=== PATIENT | male | born 1990 | race Caucasian/White ===

== ENCOUNTER 2023-12-28 06:36 | Emergency (ER) | payer MEDICAID ==
[~2023-12-28] VITALS: Ht 170.2 cm; Wt 82.0 kg
[~2023-12-28 06:36] MED LIST: LEVO-65 MT
[2023-12-28 06:53] VITALS: O2SAT 97
[2023-12-28 07:56] LABS: BASOPHILS % 1.1 % (0.0-2.0); HEMATOCRIT. 45.9 % (42.0-52.0); HEMOGLOBIN. 15.6 g/dL (14.0-18.0); LYMPHOCYTES % 16.4 % (20.0-50.0); MEAN CORPUSCULAR HEMOGLOBIN 31.7 pg (28.0-32.0); MEAN CORPUSCULAR HGB CONC 33.9 g/dL (31.0-37.0); MEAN CORPUSCULAR VOLUME 93.5 fL (80.0-94.0); MEAN PLATELET VOLUME 8.4 fl (7.4-10.4); NEUTROPHILS % 67.5 % (40.0-76.0); PLATELET 240 x1000/uL (130-400); RED BLOOD CELL COUNT 4.91 mill/uL (4.7-6.1); RED CELL DISTRIBUTION WIDTH 12.9 % (11.6-14.6); WHITE BLOOD COUNT 6.3 x1000/uL (4.5-11.0)
[2023-12-28 08:01] LABS: CHLORIDE 105 mEq/L (98-107); POTASSIUM 4.4 mEq/L (3.5-5.1); SODIUM 138 mEq/L (136-145)
[2023-12-28 08:02] LABS: CALCIUM 9.7 mg/dL (8.7-10.4); CARBON DIOXIDE 25 mEq/L (21-32)
[2023-12-28 08:07] LABS: CREATININE 0.7 mg/dL (0.6-1.3); GLUCOSE 119 mg/dL (70-105); UREA NITROGEN BLOOD 11 mg/dL (9-23)
[2023-12-28 08:50] VITALS: BP 138/78; PULSE 81; RESP 18; TEMP 98.2
== END 2023-12-28 08:50 | disposition home or self-care (01) ==
LOC: ER 06:36
DX: R23.4 Changes in skin texture (principal); Z88.1 Allergy status to other antibiotic agents; Z98.890 Other specified postprocedural states
CPT/HCPCS: 36415; 80048; 85025; 99283

== ENCOUNTER 2024-02-08 09:34 | Emergency (ER) | payer MEDICAID ==
[~2024-02-08] VITALS: Ht 170.2 cm; Wt 82.0 kg
[2024-02-08 09:45] VITALS: O2SAT 98
[2024-02-08 10:08] LABS: CHLORIDE 96 mEq/L (98-107); POTASSIUM 3.7 mEq/L (3.5-5.1); SODIUM 138 mEq/L (136-145)
[2024-02-08 10:10] LABS: BASOPHILS % 0.8 % (0.0-2.0); CARBON DIOXIDE 23 mEq/L (21-32); EOSINOPHILS % 0.4 % (0.0-5.0); LYMPHOCYTES % 22.9 % (20.0-50.0); MEAN CORPUSCULAR HGB CONC 34.8 g/dL (31.0-37.0); MEAN CORPUSCULAR VOLUME 91.8 fL (80.0-94.0); MEAN PLATELET VOLUME 8.9 fl (7.4-10.4); NEUTROPHILS % 67.9 % (40.0-76.0); PLATELET 369 x1000/uL (130-400); RED BLOOD CELL COUNT 5.33 mill/uL (4.7-6.1); RED CELL DISTRIBUTION WIDTH 13.6 % (11.6-14.6); WHITE BLOOD COUNT 7.9 x1000/uL (4.5-11.0)
[2024-02-08 10:15] LABS: GLUCOSE 133 mg/dL (70-105)
[2024-02-08 10:16] LABS: ETHANOL BLOOD 202 mg/dL (<10)
[2024-02-08 10:17] LABS: ALANINE AMINOTRANSFERASE 224 IU/L (10-49); ALBUMIN 5.5 g/dL (3.2-4.8); ASPARTATE AMINOTRANSFERASE 261 IU/L (<34); BILIRUBIN DIRECT 0.7 mg/dL (<=3.0); BILIRUBIN TOTAL 2.1 mg/dL (0.1-1.0); PROTEIN TOTAL 9.1 g/dL (6.0-8.3)
[2024-02-08 10:23] LABS: UREA NITROGEN BLOOD < 5 mg/dL (9-23)
[2024-02-08] MEDS: DICYCLOMINE 10 MG/5 ML ORAL SYR PO STA (10:32)
[2024-02-08] MEDS: ONDANSETRON 4MG ODT PO STA (11:20)
[2024-02-08] MEDS: FAMOTIDINE 20MG TABLET PO ONE (11:23)
[2024-02-08] MEDS: CHLORDIAZEPOXIDE 25MG CAPSULE PO ONE (11:42)
[2024-02-08 12:29] LABS: CLARITY URINE CLEAR (CLEAR); COLOR URINE DARK YELLOW (YELLOW); GLUCOSE URINE NEGATIVE (NEGATIVE); KETONES URINE 3+ (NEGATIVE); LEUKOCYTE ESTERASE URINE TRACE (NEGATIVE); NITRITE URINE NEGATIVE (NEGATIVE); OCCULT BLOOD URINE NEGATIVE (NEGATIVE); PROTEIN URINE 2+ (NEGATIVE); SPECIFIC GRAVITY URINE 1.018 (1.005-1.030)
[2024-02-08] MEDS ORDERED: GABA-532 MT (12:55)
[2024-02-08 13:02] LABS: BACTERIA URINE FEW; RBC URINE NONE SEEN /hpf (0-2); SQUAMOUS EPITHELIAL CELL URINE NONE SEEN /lpf (RARE/1+); WBC URINE 0-2 /hpf (0-2); YEAST URINE NONE SEEN
[2024-02-08 13:30] VITALS: BP 130/93; PULSE 102; RESP 18; TEMP 36.72516; O2SAT 97
[2024-02-08] MEDS: KETOROLAC 30MG/ML VIAL IM ONE (13:37)
== END 2024-02-08 13:30 | disposition home or self-care (01) ==
LOC: ER 09:34
DX: R74.01 Elevation of levels of liver transaminase levels (principal); F10.129 Alcohol abuse with intoxication, unspecified; Z88.1 Allergy status to other antibiotic agents; Y90.7 Blood alcohol level of 200-239 mg/100 ml
CPT/HCPCS: 80076; 80048; 81003; 80320; 83690; 85025; 36415; 96372; 99284; Q0162; J1885; G0480

== ENCOUNTER 2025-03-26 19:38 | Inpatient (IN) | payer MEDICAID ==
[~2025-03-26] VITALS: Ht 160 cm; Wt 81.6 kg
[~2025-03-26 19:38] MED LIST changes: +FOLI-43 PO; +HYDR-4001 MT; -LEVO-65 MT; +PANT40TA51 PO; +THIA100T72 PO; +TRAZ-251 MT
[2025-03-26 19:44] VITALS: O2SAT 96
[2025-03-26] MEDS: SODIUM CHLORIDE 0.9% 1,000 ML IV ONE ×2 (20:21→22:41)
[2025-03-26] MEDS: KETOROLAC 15MG/ML VIAL IV ONE (20:22)
[2025-03-26] MEDS: ONDANSETRON HCL 4MG/2ML INJ IV ONE (20:22)
[2025-03-26 21:13] LABS: BASOPHILS % 1.2 % (0.0-2.0); EOSINOPHILS % 1.5 % (0.0-5.0); HEMATOCRIT. 42.7 % (42.0-52.0); HEMOGLOBIN. 14.5 g/dL (14.0-18.0); LYMPHOCYTES % 23.7 % (20.0-50.0); MEAN PLATELET VOLUME 7.7 fl (7.4-10.4); MONOCYTES % 8.7 % (2.0-8.0); NEUTROPHILS % 64.9 % (40.0-76.0); PLATELET 565 x1000/uL (130-400); RED BLOOD CELL COUNT 4.58 mill/uL (4.7-6.1); RED CELL DISTRIBUTION WIDTH 13.6 % (11.6-14.6)
[2025-03-26 21:30] LABS: CREATININE 0.8 mg/dL (0.6-1.3); TROPONIN I HIGH SENSITIVITY < 4 ng/L (3.0-53)
[2025-03-26 21:31] LABS: UREA NITROGEN BLOOD < 5 mg/dL (9-23)
[2025-03-26 21:32] LABS: ASPARTATE AMINOTRANSFERASE 250 IU/L (<34); BILIRUBIN DIRECT 0.8 mg/dL (<=3.0)
[2025-03-26 21:33] LABS: BILIRUBIN TOTAL 1.6 mg/dL (0.1-1.0); PROTEIN TOTAL 8.4 g/dL (6.0-8.3)
[2025-03-26 21:56] LABS: ETHANOL BLOOD 405 mg/dL (<10)
[2025-03-26] MEDS: MORPHINE SULFATE 4 MG/ML INJ (FOR IV/IM USE) IV ONE (22:42)
[2025-03-26 23:05] LABS: *AMPHETAMINES SCREEN URINE NEGATIVE (NEGATIVE); *BARBITURATES SCREEN URINE NEGATIVE (NEGATIVE); *BENZODIAZEPINES SCREEN URINE PRESUMPTIVE POSITIVE (NEGATIVE)
[2025-03-26 23:06] LABS: *COCAINE SCREEN URINE NEGATIVE (NEGATIVE); CANNABINOID URINE SCREEN PRESUMPTIVE POSITIVE (NEGATIVE); ECSTASY MDMA SCREEN URINE NEGATIVE (NEGATIVE); METHADONE URINE SCREEN NEGATIVE (NEGATIVE); OPIATES URINE SCREEN NEGATIVE (NEGATIVE); PHENCYCLIDINE URINE SCREEN NEGATIVE (NEGATIVE)
[2025-03-26] MEDS ORDERED: ONDANSETRON HCL 4MG/2ML INJ IV PRN (23:30)
[2025-03-26] MEDS ORDERED: CLONIDINE 0.1MG TABLET PO PRN (23:30)
[2025-03-26] MEDS ORDERED: IPRATROPIUM/ALBUTEROL 0.5-3(2.5)MG/3ML NEB HHN PRN (23:30)
[2025-03-26] MEDS ORDERED: GUAIFENESIN 200MG/10ML SUGAR FREE UDC PO PRN (23:30)
[2025-03-26 23:38] LABS: CLARITY URINE CLEAR (CLEAR); COLOR URINE YELLOW (YELLOW)
[2025-03-26 23:39] LABS: GLUCOSE URINE NEGATIVE (NEGATIVE); KETONES URINE TRACE (NEGATIVE); LEUKOCYTE ESTERASE URINE NEGATIVE (NEGATIVE); NITRITE URINE NEGATIVE (NEGATIVE); OCCULT BLOOD URINE 1+ (NEGATIVE); PH URINE 6.0 (4.5-8.0); PROTEIN URINE 1+ (NEGATIVE); SPECIFIC GRAVITY URINE <1.005 (1.005-1.030); UROBILINOGEN URINE 0.2 E.U./dL (0.2-1.0)
[2025-03-27] VITALS (7 sets, daily range): BP systolic 103–127; BP diastolic 61–85; PULSE 71–81; RESP 16–18; TEMP 36.3–36.8; O2SAT 97–99
[2025-03-27] MEDS ORDERED: MVI, ADULT NO.1 10 ML, FOLIC ACID 1 MG, THIAMINE HCL 100 MG in SODIUM CHLORIDE 0.9% 1,0... IV NR
[2025-03-27] MEDS: ACETAMINOPHEN 500MG TABLET PO ONE (00:03)
[2025-03-27] MEDS: KETOROLAC 15MG/ML VIAL IM ONE (00:03)
[2025-03-27 01:04] LABS: BACTERIA URINE NONE SEEN; SQUAMOUS EPITHELIAL CELL URINE FEW /lpf (RARE/1+); WBC URINE 0-2 /hpf (0-2)
[2025-03-27] MEDS: PANTOPRAZOLE SODIUM 40 MG/VIAL IV SCH (01:54)
[2025-03-27] MEDS: LORAZEPAM 2MG/ML UD SYRINGE IV PRN (01:54)
[2025-03-27] MEDS: DOCUSATE SODIUM 100MG CAPSULE PO PRN (01:54)
[2025-03-27] MEDS ORDERED: MORPHINE SULFATE 2 MG/ML INJ (NOT FOR IM USE) IV PRN (02:00)
[2025-03-27 02:05] LABS: INR 1.2
[2025-03-27 02:16] LABS: PHOSPHORUS 3.8 mg/dL (2.5-4.9)
[2025-03-27 02:20] LABS: T4 FREE 1.12 ng/dL (0.89-1.76)
[2025-03-27 02:53] LABS: HEPATITIS A AB IGM NEGATIVE (Negative)
[2025-03-27 02:54] LABS: HEPATITIS B CORE AB IGM NEGATIVE (Negative)
[2025-03-27 02:55] LABS: HEPATITIS C AB NON REACTIVE (Neg) (Negative)
[2025-03-27] MEDS: MVI, ADULT NO.1 10 ML, FOLIC ACID 1 MG, THIAMINE HCL 100 MG in SODIUM CHLORIDE 0.9% 1,0... IV NR (04:46)
[2025-03-27] MEDS: CHLORDIAZEPOXIDE 25MG CAPSULE PO SCH (04:46)
[2025-03-27 08:16] LABS: PLATELET 284 x1000/uL (130-400); RED BLOOD CELL COUNT 3.62 mill/uL (4.7-6.1); RED CELL DISTRIBUTION WIDTH 13.6 % (11.6-14.6)
[2025-03-27 08:24] LABS: ASPARTATE AMINOTRANSFERASE 165 IU/L (<34); BILIRUBIN TOTAL 2.2 mg/dL (0.1-1.0); CREATINE KINASE MB FRACTION < 0.5 ng/mL (0.5-3.6); CREATININE 0.6 mg/dL (0.6-1.3); TROPONIN I HIGH SENSITIVITY < 4 ng/L (3.0-53)
[2025-03-27 08:25] LABS: LDL CHOLESTEROL 155 mg/dL (5-100); PROTEIN TOTAL 6.5 g/dL (6.0-8.3); TRIGLYCERIDE 120 mg/dL (0-150); UREA NITROGEN BLOOD < 5 mg/dL (9-23)
[2025-03-27 08:26] LABS: BILIRUBIN DIRECT 1.2 mg/dL (<=3.0)
[2025-03-27 08:27] LABS: PHOSPHORUS 4.1 mg/dL (2.5-4.9)
[2025-03-27] MEDS ORDERED: THIAMINE HCL 100 MG/1 ML 2ML VIAL IM SCH (09:00)
[2025-03-27] MEDS: NICOTINE 7MG PATCH TD SCH (09:00)
[2025-03-27] MEDS: ENOXAPARIN 40MG/0.4ML SYR SUBCUT SCH (09:00)
[2025-03-27] MEDS: MULTIVITAMINS,THER W-MINERALS TABLET PO SCH (09:50)
[2025-03-27] MEDS: FOLIC ACID 1MG TABLET PO SCH (09:50)
[2025-03-27] MEDS: THIAMINE HCL 100MG TABLET PO SCH (09:56)
[2025-03-27] MEDS: PANTOPRAZOLE 40MG DR TABLET PO SCH (09:56)
[2025-03-27] MEDS: KETOROLAC 15MG/ML VIAL IV PRN (13:36)
[2025-03-27] MEDS: POTASSIUM CHLORIDE 20MEQ TABLET SR PO NR (13:38)
[2025-03-27] MEDS: MAGNESIUM 2 G PREMIX 50 ML IV NR (13:39)
[2025-03-27] MEDS ORDERED: NALOXONE HCL 0.4MG/ML VIAL IV PRN (17:15)
[2025-03-27] MEDS: MORPHINE SULFATE 10 MG/ML INJ (NOT FOR IM USE) IV PRN (21:21)
[2025-03-27] MEDS: ATORVASTATIN CALCIUM 20MG TABLET PO SCH (21:21)
[2025-03-28] VITALS: BP 110/66; PULSE 69; RESP 20; TEMP 36.4; O2SAT 97
[2025-03-28 04:00] VITALS: BP 115/74; PULSE 60; RESP 20; TEMP 36.4
[2025-03-28 08:00] VITALS: BP 119/83; PULSE 87; RESP 18; TEMP 36.7; O2SAT 96
[2025-03-28] MEDS ORDERED: ATOR20TA PO (09:33)
[2025-03-28] MEDS ORDERED: PANT40TA51 PO (09:33)
[2025-03-28] MEDS ORDERED: THIA100T72 PO (09:33)
[2025-03-28] MEDS ORDERED: FOLI-43 PO (09:33)
[2025-03-28 12:00] VITALS: BP 132/83; PULSE 73; RESP 18; TEMP 36.6; O2SAT 98
[2025-03-28 13:49] VITALS: BP 132/83; PULSE 73; RESP 17; TEMP 97.9
[2025-03-29] MEDS ORDERED: THIAMINE HCL 100MG TABLET PO SCH (09:00)
== END 2025-03-28 14:45 | disposition home or self-care (01) | DRG 135 ==
LOC: ER 19:38 → 6WST 23:13 → EDBEDREQ 23:15 → EDBEDREQSVC 23:15 → EDBEDREQTM 23:15 → ENRESERV 23:44
PROVIDERS: ADMIT Student in an Organized Health Care Education/Training Program; ATTEND Student in an Organized Health Care Education/Training Program
DX: S22.42XA Multiple fractures of ribs, left side, initial encounter for closed fracture (principal); G92.8 Other toxic encephalopathy; K85.90 Acute pancreatitis without necrosis or infection, unspecified; E87.20 Acidosis, unspecified; F10.229 Alcohol dependence with intoxication, unspecified; K70.10 Alcoholic hepatitis without ascites; K70.0 Alcoholic fatty liver; E87.6 Hypokalemia; E83.42 Hypomagnesemia; E78.5 Hyperlipidemia, unspecified; F17.200 Nicotine dependence, unspecified, uncomplicated; Y90.8 Blood alcohol level of 240 mg/100 ml or more; F12.20 Cannabis dependence, uncomplicated; K40.90 Unilateral inguinal hernia, without obstruction or gangrene, not specified as recurrent; D75.839 Thrombocytosis, unspecified; E80.6 Other disorders of bilirubin metabolism; X58.XXXA Exposure to other specified factors, initial encounter; Z79.899 Other long term (current) drug therapy; Y93.89 Activity, other specified; Z88.1 Allergy status to other antibiotic agents; Y92.89 Other specified places as the place of occurrence of the external cause; Y99.8 Other external cause status
CPT/HCPCS: 36415; 71045; 71250; 74176; 76700; 80048; 80061; 80076; 80305; 80320; 81003; 82140; 82150; 82306; 82550; 82553; 83036; 83605; 83735; 83880; 84100; 84439; 84443; 84484; 85025; 85027; 85379; 86705; 86709; 87340; 93005; 99285; J1650; J1885; J2060; J2270; J2405; J2470; J3411; J3475; J3490; J7030; G0480